=== PATIENT | female | born 2000 ===

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

== ENCOUNTER 2018-08-10 21:58 | Emergency (ER) | payer OTHER ==
[2018-08-11 00:06] LABS: BASOPHILS % (AUTO) 1 % (0-3); EOSINOPHILS % (AUTO) 1 % (0-9); HEMATOCRIT 40 % (35-47); HEMOGLOBIN 13.1 gm/dl (12.0-15.5); LYMPHOCYTES % (AUTO) 42.8 % (10-50); MEAN CORPUSCULAR HEMOGLOBIN 30.3 pg (27.0-32.0); MEAN CORPUSCULAR HGB CONC 32.7 gm/dl (32.0-36.0); MEAN CORPUSCULAR VOLUME 93 fL (81-99); MONOCYTES % (AUTO) 8.4 % (0-12); NEUTROPHILS % (AUTO) 47.6 % (37-80)
[2018-08-11 00:28] LABS: ALBUMIN 4.5 gm/dl (3.4-5.0); ALKALINE PHOSPHATASE 72 IU/L (46-116); ALT 31 IU/L (14-63); AST 22 IU/L (15-37); BILIRUBIN,TOTAL 0.7 mg/dl (0.2-1.0); BLOOD UREA NITROGEN 12 mg/dl (7-18); CALCIUM 9.2 mg/dl (8.5-10.1); CARBON DIOXIDE 26.2 mEq/L (21-32); CHLORIDE 98 mMol/L (98-107); CREATININE 0.89 mg/dl (0.60-1.00); GLUCOSE 88 mg/dl (74-106); POTASSIUM 3.9 mMol/L (3.5-5.1); SODIUM 138 mMol/L (136-145); THYROID STIMULATING HORMONE 1.642 uIU/ml (0.358-3.740); TOTAL PROTEIN 8.4 gm/dl (6.4-8.2)
[2018-08-11 00:30] LABS: ALCOHOL < 0.003 gm/dl (0.000-0.08)
[2018-08-11 00:34] VITALS: TEMP 98; O2SAT 99
[2018-08-11 00:53] LABS: APPEARANCE,URINE Slightly Cloudy; BILIRUBIN,URINE 1+ (NEGATIVE); COLOR,URINE Yellow; GLUCOSE, URINE (UA) NEGATIVE (NEGATIVE); KETONES,URINE 2+ (NEGATIVE); LEUKOCYTE ESTERASE ,URINE NEGATIVE (NEGATIVE); NITRATE,URINE NEGATIVE (NEGATIVE); OCCULT BLOOD,URINE NEGATIVE (NEG-TRACE); PH,URINE 5.5; UROBILINOGEN,URINE 0.2 (0.2-1.0 EU)
[2018-08-11 01:03] VITALS: BP 110/68; PULSE 71; RESP 16
[2018-08-11 01:07] LABS: AMPHETAMINES NEGATIVE (NEGATIVE); BACTERIA NEGATIVE (< 1+); BARBITUATES NEGATIVE (NEGATIVE); BENZODIAZEPINES NEGATIVE (NEGATIVE); CANNABINOL(THC) NEGATIVE (NEGATIVE); COCAINE(COC) NEGATIVE (NEGATIVE); CRYSTALS NEGATIVE (0-3 AVE/HPF); METHADONE NEGATIVE (NEGATIVE); METHAMPHETAMINES NEGATIVE (NEGATIVE); OPIATES(OPI) NEGATIVE (NEGATIVE); OXYCODONE(OXY) NEGATIVE (NEGATIVE); PROPOXYPHENE(PPX) NEGATIVE (NEGATIVE); RBC,URINE NEG (0-3AV/HPF); TRICYCLIC ANTIDEPRESSANTS NEGATIVE (NEGATIVE); WBC,URINE 0-3 (0-5AV/HPF)
[2018-08-11 01:08] LABS: ICTOTEST,URINE NEGATIVE (NEGATIVE)
== END 2018-08-11 02:36 ==
LOC: ED 21:58
DX: F99 Mental disorder, not otherwise specified (principal); R44.1 Visual hallucinations; R45.851 Suicidal ideations; F22 Delusional disorders
CPT/HCPCS: 36415; 80053; 80305; 80307; 81001; 84443; 84703; 85025; 99283; 99284